=== PATIENT | male | born 1995 | race Caucasian/White ===

== ENCOUNTER 2024-01-29 20:48 | Emergency (ER) | payer SELFPAY ==
--- NOTE | ~2024-01-29 | XR_ITS ---
EXAMINATION: XR CHEST CLINICAL INFORMATION: [place] COMPARISON: None available. TECHNIQUE: Frontal view of the chest was obtained. FINDINGS: No significant abnormality is noted involving the heart, lungs, mediastinum, bony thorax or soft tissues. XR/XR chest 1V IMPRESSION: Unremarkable examination. Electronically signed by: Arthur Lyn MD 01/29/2024 09:53 PM [facility]
--- NOTE | ~2024-01-29 | XR_ITS ---
EXAMINATION: XR LUMBOSACRAL SPINE CLINICAL INFORMATION: hear ripping sound in back at gym. back pain COMPARISON: None available. TECHNIQUE: Three views of the lumbosacral spine. FINDINGS: The vertebral bodies and posterior elements are normal. The disc spaces are preserved and the vertebral alignment is normal. The paraspinal soft tissues are normal. XR/XR lumbar spine 2-3V IMPRESSION: Unremarkable examination. Electronically signed by: Arthur Lyn MD 01/29/2024 09:55 PM EST
--- NOTE | ~2024-01-29 | XR_ITS ---
EXAMINATION: XR THORACIC SPINE CLINICAL INFORMATION: back pain COMPARISON: None available. TECHNIQUE: 3 views of the thoracic spine were obtained. FINDINGS: There is no fracture or bone destruction seen and the vertebral alignment is normal. There is no disc space narrowing. There is no abnormality of the paraspinal soft tissues. XR/XR thoracic spine 3V IMPRESSION: Unremarkable examination. Electronically signed by: Arthur Lyn MD 01/29/2024 09:56 PM EST
[2024-01-29 20:56] VITALS: BP 140/92; PULSE 113; RESP 20; TEMP 36.1; O2SAT 99; BMI 40.4
--- NOTE | 2024-01-29 20:59 | ED.GENADULT ---
HPI - General Adult General Chief complaint: Back Pain/Injury Stated complaint: back pain Time Seen by Provider: 01/30/24 00:27 Source: patient Mode of arrival: ambulatory Limitations: no limitations History of Present Illness ED Provider: YOLI HPI narrative: 28 yo male with no sig PMH who works as a building custodian noted some R sided back pain that was mild on and off he went to the gym and then he noted it was worse he coughed and then the pain became severe. He has no numbness, weakness, loss of control of bowel or bladder. He notes it hurts to move. It is located right near the shoulder blade. When he coughed he felt something tear. complaint: back pain Onset (ago): day(s) (couple) Location: back Radiation: non-radiation Severity: moderate Quality: stabbing Pain Consistency: intermittent Relieving factors: rest Exacerbating factors: movement Associated symptoms: denies other symptoms Treatments prior to arrival: NSAID and other (tylenol) Related Data Previous Rx's ?Medication ?Instructions ?Recorded cyclobenzaprine 10 mg tablet 10 mg PO TID PRN muscle spasm #20 01/30/24 tabs lidocaine 5 % topical patch 1 patch topical DAILY #30 ea 01/30/24 Allergies Allergy/AdvReac Type Severity Reaction Status Date / Time No Known Allergies Allergy Verified 01/29/24 21:04 Review of Systems Review of Systems: Constitutional : No Weight loss, No Fever, No Chills, ENT/Mouth : No Hearing loss, No Ear Pain, No Nasal Congestion, No Sinus Pain, No Hoarseness, No sore throat, No Rhinorrhea, No Swallowing Difficulty Cardiovascular : No Chest Pain, No SOB Respiratory : No Cough, No Dyspnea Gastrointestinal : No Nausea, No Vomiting, No Diarrhea, No abdominal Pain, No Hematochezia, No Melena Genitourinary : No Dysuria, No Urinary Frequency, No Hematuria, No Urinary Incontinence, Musculoskeletal : positive back pain Skin : No Skin Lesions, No rash Neuro : No Weakness, No Numbness, No Paresthesias, no loss of bowel or bladder incontinence, no saddle anesthesia all other systems reviewed and are negative [facility] Past Medical History Attestation statement: The following information was validated with the patient. Source: old records reviewed Medical History No pertinent past medical history Social History Social History (Updated 01/30/24 @ 00:49 by Elenita Ayala DO) Patient Tobacco Use Status: Never used Tobacco Advance Directives: No Advance Directives Information Provided: No Do you have a plan to hurt others: No Plan Physical Exam ED Vital Signs: Vital Signs - 24 hr 01/29/24 20:56 01/30/24 01:27 Temperature 97 F 97 F Pulse Rate 113 H 88 Respiratory Rate 20 17 Blood Pressure 140/92 H 162/99 H Pulse Oximetry 99 95 Oxygen Delivery Method Room Air Room Air BMI result Body Mass Index 40.4 Appearance: Alert. Oriented X3. No acute distress. Eyes: Pupils equal, round and reactive to light. ENT: Pharynx normal. Neck: Normal inspection. Neck supple. CVS: Normal heart rate and rhythm. Pulses normal. Respiratory: No respiratory distress. Breath sounds normal. Abdomen: Soft and nontender. Back: ttp along R thoracic paraspinals pain with palpation and movements Skin: Skin warm and dry. Normal skin color. Extremities: No lower extremity edema. Neuro: Oriented X 3. No motor deficit. No sensory deficit. Course Course Course Narrative: RME: 28 yold presents to ED for back pain. Patient was at the gym working out and hurt or ripping sensation in his back. Patient's secondary complaint is coughing. Patient denies any blunt trauma chest pain or shortness of breath. X-rays ordered Medications Administered Discontinued Medications Generic Name Dose Route Start Last Admin Trade Name Freq PRN Reason Stop Dose Admin Cyclobenzaprine HCl 10 mg 01/30/24 00:40 01/30/24 01:24 Cyclobenzaprine Hcl 10 Mg Tablet PO 01/30/24 00:41 10 mg ONCE ONE Administration Lidocaine 1 patch 01/30/24 00:40 01/30/24 01:24 Lidocaine 4 % Patch Adh..Patch TRANSDERMA 01/30/24 00:41 1 patch ONCE ONE Administration Protocol Medical Decision Making Medical Decision Making MDM Narrative: 28 yo male with no sig PMH here with c/o reproduceable R thoracic back pain worse with movements felt a tear in the muscle when he coughed at this time no AC therapy, no IVDA, pain is reproduceable - he is [place] intact no signs of rash. It does not radiate given his symptoms doubt VTE or dissection it is ttp and appears more MSK in nature, lidocaine patch, muscle relaxers Differential Diagnosis Differential Diagnoses: The differential diagnosis associated with the presentation includes muscle strain, spasm Admission/Observation Consideration of admission/observation: Escalation of care including admission/observation considered exam reassuing stable for DC Lab Data Labs: Lab Results 01/29/24 Range/Units 21:13 Influenza Type A (PCR) NEGATIVE (Negative) Influenza Type B (PCR) NEGATIVE (Negative) RSV RNA Qual (PCR) NEGATIVE (Negative) SARS-CoV-2 RNA (RT-PCR) NEGATIVE (Negative) Independent Interpretation I performed an independent interpretation of an: Plain X-Ray (no trauma) Radiology Impression Discussion of test interpretation with radiology: I have reviewed the radiologist's reading. Prescription Management I considered prescription management with: Pain Medication and Other Discharge Plan Discharge Clinical Impression: Thoracic back pain Qualifiers: Chronicity: acute Back pain laterality: right Qualified Code(s): M54.6 - Pain in thoracic spine Patient Disposition: Home, Self-Care Instructions: Thoracic Pain (ED) Additional Instructions: xrays of thoracic spine, lumbar spine, chest xray is normal continue to use motrin and tylenol along with new medications return for any worsening symptoms, pain, fevers, weakness, numbness, loss of control of bowel or bladder or any other concerns follow up with your doctor if no improvement Prescriptions: New cyclobenzaprine 10 mg tablet 10 mg PO TID PRN (Reason: muscle spasm) Qty: 20 0RF lidocaine 5 % adhesive patch,medicated 1 patch topical DAILY Qty: 30 0RF Rx Instructions: leave on most painful area for up to 12 hrs Stand Alone Forms: Work/School Release Interventions: ED Discharge Assessment Last Done: 01/30/24 01:27 Discharge Date/Time: 01/30/24 01:29 Print Language: [place]
[2024-01-29 21:55] LABS: Influenza A PCR NEGATIVE (Negative); Influenza B PCR NEGATIVE (Negative); Resp Syncy Virus RNA Qual PCR NEGATIVE (Negative); SARS COV2 PCR INHOUSE NEGATIVE (Negative)
[2024-01-30] MEDS: Cyclobenzaprine HCl 10 MG TABLET PO (01:24)
[2024-01-30] MEDS: Lidocaine 4 % Patch ADH..PATCH 1 PATCH TRANSDERMA (01:24)
[2024-01-30 01:27] VITALS: BP 162/99; PULSE 88; RESP 17; TEMP 36.1; O2SAT 95
== END 2024-01-30 01:29 | disposition home or self-care (01) ==
PROVIDERS: Physician Assistant; Emergency Provider Emergency Medicine; PCP Internal Medicine
DX: M54.6 Pain in thoracic spine (principal); R05.9 Cough, unspecified; R07.89 Other chest pain; Z03.818 Encounter for observation for suspected exposure to other biological agents ruled out
CPT/HCPCS: 0241U; 71045; 72072; 72100; 99283